=== PATIENT | female | born 1980 | race Hispanic/Latino ===

== ENCOUNTER → 2025-06-20 | Day surgery (SDC) | payer OTHER ==
[~2025-06-20] MED LIST: FENTANYL CITRATE/PF 100MCG/2 ML INJ ONE; GLUCAGON FOR INJ 1 MG VIAL ONE; LIDOCAINE HCL 2% LOCAL INJ 5 ML SDV VIAL INJ ONE; METOCLOPRAMIDE HCL 10 MG/2ML VIAL ONE; MULTI-VITAMIN1 EACH PO; OMEGA 3 1,0001 EACH PO; PROPOFOL IV EMULSION 50 ML IV ONE; VIT D PO; VIT D3-VIT K21 EACH PO; VIT E PO; ZESTRIL2.5 MG PO
[2025-06-20] MEDS: LACTATED RINGER'S 1,000 ML ONE (09:20)
[2025-06-20 14:15] VITALS: BP 121/67; PULSE 79; RESP 17; O2SAT 98
== END | disposition home or self-care (01) ==
LOC: OR 08:48
PROVIDERS: ATTEND Internal Medicine Gastroenterology
DX: Z12.11 Encounter for screening for malignant neoplasm of colon (principal); K64.8 Other hemorrhoids; K21.00 Gastro-esophageal reflux disease with esophagitis, without bleeding; K29.50 Unspecified chronic gastritis without bleeding; K44.9 Diaphragmatic hernia without obstruction or gangrene; K31.7 Polyp of stomach and duodenum; K31.89 Other diseases of stomach and duodenum; K59.09 Other constipation; I10 Essential (primary) hypertension; Z71.3 Dietary counseling and surveillance; Z68.25 Body mass index [BMI] 25.0-25.9, adult; Z79.899 Other long term (current) drug therapy
CPT/HCPCS: 43239; 43251; 45378; 81025; 93005; J1610; J2003; J2470; J2704; J2765; J3010; J7121

== ENCOUNTER → 2025-08-08 | Outpatient (REF) | payer OTHER ==
[~2025-08-08] MED LIST changes: -FENTANYL CITRATE/PF 100MCG/2 ML INJ ONE; -GLUCAGON FOR INJ 1 MG VIAL ONE; -LIDOCAINE HCL 2% LOCAL INJ 5 ML SDV VIAL INJ ONE; -METOCLOPRAMIDE HCL 10 MG/2ML VIAL ONE; -PROPOFOL IV EMULSION 50 ML IV ONE
== END ==
LOC: DX 09:32
PROVIDERS: ATTEND Surgery
DX: K21.9 Gastro-esophageal reflux disease without esophagitis (principal); K44.9 Diaphragmatic hernia without obstruction or gangrene
CPT/HCPCS: 74246

== ENCOUNTER 2025-09-05 06:24 | Inpatient (IN) | payer OTHER ==
[2025-09-04 11:22] LABS: BASOPHILS % 0.6 % (0.0-1.0); EOSINOPHILS % 1.8 % (0.0-6.0); LYMPHOCYTES % 21.8 % (18.0-39.1); MONOCYTES % 8.3 % (4.4-11.3); NEUTROPHILS % 67.1 % (38.7-80.0); RED CELL DISTRIBUTION WIDTH 13.1 % (11.7-14.4)
[2025-09-04 12:02] LABS: EST GLOMERULAR FILTRATION RATE 110.0 ML/MIN (>=60)
[~2025-09-05] VITALS: Ht 160 cm; Wt 78.5 kg
[2025-09-05] MEDS ORDERED: DEXAMETHASONE SOD PHOS INJ 4 MG/ML SDV ONE (07:51)
[2025-09-05] MEDS ORDERED: ACETAMINOPHEN 1000 MG/100 ML 100 ML IV ONE (07:51)
[2025-09-05] MEDS ORDERED: ONDANSETRON HCL INJ 2MG/ML 2ML 2 MG/ML VIAL ONE (07:51)
[2025-09-05] MEDS ORDERED: FENTANYL CITRATE/PF 100MCG/2 ML INJ ONE (07:51)
[2025-09-05] MEDS ORDERED: PROPOFOL IV EMULSION 10 MG/ML 20 ML VIAL ONE ×2 (07:51)
[2025-09-05] MEDS ORDERED: LIDOCAINE HCL 2% LOCAL INJ 5 ML SDV VIAL INJ ONE (07:51)
[2025-09-05] MEDS ORDERED: MIDAZOLAM HCL 2 MG/2 ML VIAL ONE (07:51)
[2025-09-05] MEDS ORDERED: ROCURONIUM BROMIDE 1 ML IV ONE ×2 (07:52→10:33)
[2025-09-05] MEDS ORDERED: HYDROMORPHONE 2MG/ML ONE (09:19)
[2025-09-05] MEDS ORDERED: EPHEDRINE SULFATE INJ 50 MG/ML VIAL ONE (09:31)
[2025-09-05] MEDS: LACTATED RINGER'S 1,000 ML ONE (10:58)
[2025-09-05] MEDS ORDERED: SUGAMMADEX SODIUM 200 MG/2 ML VIAL IV ONE ×2 (11:15→11:40)
[2025-09-05] MEDS: SODIUM CHLORIDE 0.9% 250ML IRRIG IR SCH (12:30)
[2025-09-05 14:44] VITALS: BP 139/89; PULSE 87; RESP 18; TEMP 97.3; O2SAT 100
[2025-09-05] MEDS: SODIUM CHLORIDE 0.9% 1000ML 1,000 ML IV SCH (16:01)
[2025-09-05 16:16] VITALS: BP 124/88; PULSE 91; RESP 19; TEMP 98.9; O2SAT 100
[2025-09-05] MEDS: SODIUM CHLORIDE 0.9% IRRIG 1,000 ML BTL IR SCH (17:17)
[2025-09-05 20:00] VITALS: BP 121/89; PULSE 102; RESP 18; TEMP 99.3; O2SAT 100
[2025-09-05] MEDS: ONDANSETRON HCL INJ 2MG/ML 2ML 2 MG/ML VIAL IV PRN (22:07)
[2025-09-05] MEDS: HYDROMORPHONE 1MG/1ML INJ IV PRN (22:07)
[2025-09-05] MEDS ORDERED: SEVOFLURANE INHAL SOLN 250 ML PEN BTL ONE (23:07)
[2025-09-06] VITALS (7 sets, daily range): BP systolic 117–128; BP diastolic 80–91; PULSE 102–120; RESP 18–19; TEMP 97.9–100; O2SAT 95–100
[2025-09-06] MEDS: ACETAMINOPHEN 1000 MG/100 ML IV PRN (03:04)
[2025-09-06 05:25] LABS: BASOPHILS % 0.2 % (0.0-1.0); EOSINOPHILS % 0.0 % (0.0-6.0); LYMPHOCYTES % 3.6 % (18.0-39.1); MONOCYTES % 7.4 % (4.4-11.3); NEUTROPHILS % 88.4 % (38.7-80.0); RED CELL DISTRIBUTION WIDTH 13.0 % (11.7-14.4)
[2025-09-06 05:57] LABS: EST GLOMERULAR FILTRATION RATE 118.0 ML/MIN (>=60)
[2025-09-07] VITALS (9 sets, daily range): BP systolic 99–150; BP diastolic 66–107; PULSE 117–142; RESP 18–21; TEMP 97.6–99.3; O2SAT 92–97
[2025-09-07 15:29] LABS: BASOPHILS % 0.2 % (0.0-1.0); EOSINOPHILS % 0.0 % (0.0-6.0); LYMPHOCYTES % 2.5 % (18.0-39.1); MONOCYTES % 5.4 % (4.4-11.3); NEUTROPHILS % 91.2 % (38.7-80.0); RED CELL DISTRIBUTION WIDTH 13.4 % (11.7-14.4)
[2025-09-07] MEDS: ACETAMINOPHEN 1000 MG/100 ML IV PRN (17:48)
[2025-09-07] MEDS: HYDROMORPHONE 1MG/1ML INJ IV STA (22:07)
[2025-09-07] MEDS ORDERED: SODIUM CHLORIDE 0.9% 100 ML ONE (22:27)
[2025-09-07] MEDS ORDERED: IOPAMIDOL 370 MG/ML 100 ML INFUS..BTL INJ ONE (22:27)
[2025-09-07 23:28] LABS: BASOPHILS % 0.2 % (0.0-1.0); EOSINOPHILS % 0.0 % (0.0-6.0); LYMPHOCYTES % 10.2 % (18.0-39.1); MONOCYTES % 6.3 % (4.4-11.3); NEUTROPHILS % 82.7 % (38.7-80.0); RED CELL DISTRIBUTION WIDTH 13.4 % (11.7-14.4)
[2025-09-07 23:49] LABS: EST GLOMERULAR FILTRATION RATE 112.0 ML/MIN (>=60)
[2025-09-08] VITALS (26 sets, daily range): BP systolic 90–131; BP diastolic 56–102; PULSE 102–119; RESP 14–20; TEMP 96.9–99.7; O2SAT 100
[2025-09-08] MEDS ORDERED: MIDAZOLAM HCL 2 MG/2 ML VIAL ONE (00:03)
[2025-09-08] MEDS ORDERED: FENTANYL CITRATE/PF 100MCG/2 ML INJ ONE ×2 (00:03→02:18)
[2025-09-08] MEDS ORDERED: LIDOCAINE HCL 2% LOCAL INJ 5 ML SDV VIAL INJ ONE (00:03)
[2025-09-08] MEDS ORDERED: ROCURONIUM BROMIDE 1 ML IV ONE ×2 (00:03→02:46)
[2025-09-08] MEDS ORDERED: PROPOFOL IV EMULSION 10 MG/ML 20 ML VIAL ONE (00:04)
[2025-09-08] MEDS ORDERED: SODIUM CHLORIDE 0.9% 100 ML ONE (02:13)
[2025-09-08] MEDS ORDERED: ACETAMINOPHEN 1000 MG/100 ML 100 ML IV ONE (02:13)
[2025-09-08] MEDS ORDERED: PHENYLEPHRINE HCL 1% 10 MG/ML VIAL ONE (02:13)
[2025-09-08] MEDS ORDERED: HYDROMORPHONE 2MG/ML ONE (02:53)
[2025-09-08] MEDS ORDERED: ACETAMINOPHEN 1000 MG/100 ML IV PRN (04:00)
[2025-09-08] MEDS: FENTANYL 2000MCG/NS 250 250 ML IV PRN (04:30)
[2025-09-08] MEDS: SODIUM CHLORIDE 0.9% 250ML 250 ML IV ONE (04:37)
[2025-09-08] MEDS: SODIUM CHLORIDE 0.9% 250ML IRRIG IR SCH (04:38)
[2025-09-08] MEDS: BUPIVACAINE LIPOSOME/PF 266 MG/20 ML IJ ONE (04:38)
[2025-09-08] MEDS: LACTATED RINGER'S 1,000 ML ONE (04:39)
[2025-09-08] MEDS: MEROPENEM 1 GM in SODIUM CHLORIDE 0.9% 100 ML IV SCH (04:40)
[2025-09-08 04:45] LABS: ABG PCO2 35 mmHg (35-45); ABG PH 7.38 (7.35-7.45); ABG PO2 138 mmHg (80-105)
[2025-09-08 04:46] LABS: ABG BASE EXCESS -4.0 mmol/L (-2 - 3); ABG HCO3 21 mmol/L (22-26); ABG OXYGEN SATURATION 138.0 % (95-98); ABG TCO2 22
[2025-09-08] MEDS: DEXTROSE 5%/LACTATED RINGERS 1,000 ML IV SCH (06:18)
[2025-09-08 06:34] LABS: BASOPHILS % 0.2 % (0.0-1.0); EOSINOPHILS % 0.0 % (0.0-6.0); LYMPHOCYTES % 7.8 % (18.0-39.1); MONOCYTES % 6.2 % (4.4-11.3); NEUTROPHILS % 85.4 % (38.7-80.0); RED CELL DISTRIBUTION WIDTH 13.2 % (11.7-14.4)
[2025-09-08 06:50] LABS: EST GLOMERULAR FILTRATION RATE 120.0 ML/MIN (>=60)
[2025-09-08] MEDS: MUPIROCIN 2% OINT 22 GM TUBE TOP SCH (08:57)
[2025-09-08] MEDS: PROPOFOL IV EMULSION 10MG/ML 100 ML IV PRN (08:58)
[2025-09-08 10:07] LABS: ABG BASE EXCESS -3.0 mmol/L (-2 - 3); ABG HCO3 22 mmol/L (22-26); ABG OXYGEN SATURATION 99.0 % (95-98); ABG PCO2 36 mmHg (35-45); ABG PH 7.39 (7.35-7.45); ABG PO2 124 mmHg (80-105); ABG TCO2 23
[2025-09-08 12:02] LABS: BAND NEUTROPHILS % (MANUAL) 36 %; LYMPHOCYTES % (MANUAL) 4 % (19-48); METAMYELOCYTES % (MANUAL) 3 % (0-0); MONOCYTES % (MANUAL) 7 % (3.4-9.0); NEUTROPHILS % (MANUAL) 49 % (40-74); PLATELET ESTIMATE ADEQUATE; PLATELET MORPHOLOGY COMMENT NORMAL; PROMYELOCYTES % (MANUAL) 1 % (0-0); RBC MORPHOLOGY COMMENT NORMAL
[2025-09-09] VITALS (27 sets, daily range): BP systolic 89–144; BP diastolic 55–120; PULSE 90–114; RESP 11–16; TEMP 97.9–99.4; O2SAT 100
[2025-09-09 06:21] LABS: BASOPHILS % 0.1 % (0.0-1.0); EOSINOPHILS % 0.6 % (0.0-6.0); LYMPHOCYTES % 5.8 % (18.0-39.1); MONOCYTES % 6.2 % (4.4-11.3); NEUTROPHILS % 86.3 % (38.7-80.0); RED CELL DISTRIBUTION WIDTH 13.4 % (11.7-14.4)
[2025-09-09 06:45] LABS: EST GLOMERULAR FILTRATION RATE 117.0 ML/MIN (>=60)
[2025-09-09] MEDS: POTASSIUM CHLORIDE 20MEQ/100ML 200 ML IV ONE ×2 (08:07→17:01)
[2025-09-09 15:36] LABS: ABG BASE EXCESS 4.0 mmol/L (-2 - 3); ABG HCO3 28 mmol/L (22-26); ABG OXYGEN SATURATION 98.0 % (95-98); ABG PCO2 42 mmHg (35-45); ABG PH 7.43 (7.35-7.45); ABG PO2 106 mmHg (80-105); ABG TCO2 29
[2025-09-09 15:38] LABS: ABG HCO3 28 mmol/L (22-26); ABG PCO2 40 mmHg (35-45); ABG PH 7.45 (7.35-7.45); ABG PO2 174 mmHg (80-105); ABG TCO2 29
[2025-09-09 15:39] LABS: ABG BASE EXCESS 4.0 mmol/L (-2 - 3); ABG OXYGEN SATURATION 100.0 % (95-98)
[2025-09-10] VITALS (24 sets, daily range): BP systolic 109–143; BP diastolic 73–105; PULSE 85–117; RESP 12–24; TEMP 98.1; O2SAT 98–100
[2025-09-10] MEDS: HYDROMORPHONE 1MG/1ML INJ IV PRN (01:05)
[2025-09-10 06:54] LABS: BASOPHILS % 0.3 % (0.0-1.0); EOSINOPHILS % 2.2 % (0.0-6.0); LYMPHOCYTES % 7.9 % (18.0-39.1); MONOCYTES % 5.2 % (4.4-11.3); NEUTROPHILS % 80.5 % (38.7-80.0); RED CELL DISTRIBUTION WIDTH 13.6 % (11.7-14.4)
[2025-09-10 07:34] LABS: EST GLOMERULAR FILTRATION RATE 120.0 ML/MIN (>=60)
[2025-09-10 10:50] LABS: ABG BASE EXCESS 7.0 mmol/L (-2 - 3); ABG HCO3 28 mmol/L (22-26); ABG OXYGEN SATURATION 99.0 % (95-98); ABG PCO2 29 mmHg (35-45); ABG PH 7.61 (7.35-7.45); ABG PO2 94 mmHg (80-105); ABG TCO2 29
[2025-09-10] MEDS: POTASSIUM CHLORIDE 20MEQ/100ML 100 ML IV ONE ×2 (17:20→22:07)
[2025-09-10] MEDS: FUROSEMIDE INJ 10 MG/ML 2 ML VIAL IV ONE (20:29)
[2025-09-10] MEDS: LORAZEPAM INJ 2 MG/ML VIAL IV ONE (22:05)
[2025-09-11] VITALS (14 sets, daily range): BP systolic 104–136; BP diastolic 78–98; PULSE 89–113; RESP 16–25; TEMP 97.7–99.7; O2SAT 97–100
[2025-09-11 06:37] LABS: BASOPHILS % 0.3 % (0.0-1.0); EOSINOPHILS % 1.8 % (0.0-6.0); LYMPHOCYTES % 8.4 % (18.0-39.1); MONOCYTES % 6.0 % (4.4-11.3); NEUTROPHILS % 75.4 % (38.7-80.0); RED CELL DISTRIBUTION WIDTH 13.5 % (11.7-14.4)
[2025-09-11 06:55] LABS: EST GLOMERULAR FILTRATION RATE 121.0 ML/MIN (>=60)
[2025-09-11] MEDS ORDERED: BISACODYL 10 MG SUPP PR ONE (08:00)
[2025-09-11 08:40] LABS: BAND NEUTROPHILS % (MANUAL) 2 %; LYMPHOCYTES % (MANUAL) 8 % (19-48); METAMYELOCYTES % (MANUAL) 1 % (0-0); MONOCYTES % (MANUAL) 6 % (3.4-9.0); MYELOCYTES % (MANUAL) 3 % (0-0); NEUTROPHILS % (MANUAL) 80 % (40-74)
[2025-09-11 08:43] LABS: PLATELET ESTIMATE ADEQUATE
[2025-09-11 08:44] LABS: PLATELET MORPHOLOGY COMMENT NORMAL; RBC MORPHOLOGY COMMENT NORMAL
[2025-09-11] MEDS: BISACODYL 10 MG SUPP PR ONE (10:40)
[2025-09-11] MEDS: FUROSEMIDE INJ 10 MG/ML 2 ML VIAL IV ONE (14:33)
[2025-09-11] MEDS: POTASSIUM CHLORIDE 20MEQ/100ML 100 ML IV ONE ×2 (15:50→17:08)
[2025-09-12] VITALS (28 sets, daily range): BP systolic 116–138; BP diastolic 80–97; PULSE 74–100; RESP 17–25; TEMP 99.4–100.2; O2SAT 98–100
[2025-09-12 06:49] LABS: BASOPHILS % 0.7 % (0.0-1.0); EOSINOPHILS % 2.6 % (0.0-6.0); LYMPHOCYTES % 8.9 % (18.0-39.1); MONOCYTES % 8.9 % (4.4-11.3); NEUTROPHILS % 65.7 % (38.7-80.0); RED CELL DISTRIBUTION WIDTH 13.4 % (11.7-14.4)
[2025-09-12 08:47] LABS: EST GLOMERULAR FILTRATION RATE 119.0 ML/MIN (>=60)
[2025-09-12 09:53] LABS: LYMPHOCYTES % (MANUAL) 8 % (19-48); MONOCYTES % (MANUAL) 6 % (3.4-9.0); MYELOCYTES % (MANUAL) 2 % (0-0); NEUTROPHILS % (MANUAL) 81 % (40-74); PLATELET ESTIMATE ADEQUATE; PLATELET MORPHOLOGY COMMENT NORMAL; RBC MORPHOLOGY COMMENT NORMAL; REACTIVE LYMPHOCYTES 3
[2025-09-12] MEDS: POTASSIUM CHLORIDE 20MEQ/100ML 100 ML IV SCH (10:10)
[2025-09-12] MEDS: BISACODYL 10 MG SUPP PR ONE (20:20)
[2025-09-13] VITALS (8 sets, daily range): BP systolic 85–151; BP diastolic 74–94; PULSE 83–99; RESP 17–23; TEMP 98.5–99.6; O2SAT 97–100
[2025-09-13 06:30] LABS: BASOPHILS % 0.6 % (0.0-1.0); EOSINOPHILS % 2.5 % (0.0-6.0); LYMPHOCYTES % 8.6 % (18.0-39.1); MONOCYTES % 9.2 % (4.4-11.3); NEUTROPHILS % 65.8 % (38.7-80.0); RED CELL DISTRIBUTION WIDTH 13.4 % (11.7-14.4)
[2025-09-13 07:23] LABS: EST GLOMERULAR FILTRATION RATE 120.0 ML/MIN (>=60)
[2025-09-13] MEDS: BISACODYL 10 MG SUPP PR ONE (08:08)
[2025-09-13 10:57] LABS: BAND NEUTROPHILS % (MANUAL) 3 %; LYMPHOCYTES % (MANUAL) 6 % (19-48); MONOCYTES % (MANUAL) 11 % (3.4-9.0); MYELOCYTES % (MANUAL) 4 % (0-0); NEUTROPHILS % (MANUAL) 76 % (40-74); PLATELET ESTIMATE ADEQUATE; PLATELET MORPHOLOGY COMMENT NORMAL; RBC MORPHOLOGY COMMENT NORMAL
[2025-09-13 13:37] LABS: ABG BASE EXCESS -3.0 mmol/L (-2 - 3); ABG HCO3 22 mmol/L (22-26); ABG OXYGEN SATURATION 99.0 % (95-98); ABG PCO2 36 mmHg (35-45); ABG PH 7.39 (7.35-7.45); ABG PO2 124 mmHg (80-105); ABG TCO2 23
[2025-09-13 13:37] LABS: ABG BASE EXCESS 4.0 mmol/L (-2 - 3); ABG HCO3 28 mmol/L (22-26); ABG OXYGEN SATURATION 98.0 % (95-98); ABG PCO2 42 mmHg (35-45); ABG PH 7.43 (7.35-7.45); ABG PO2 106 mmHg (80-105); ABG TCO2 29
[2025-09-13 13:38] LABS: ABG BASE EXCESS 4.0 mmol/L (-2 - 3); ABG HCO3 28 mmol/L (22-26); ABG OXYGEN SATURATION 100.0 % (95-98); ABG PCO2 40 mmHg (35-45); ABG PH 7.45 (7.35-7.45); ABG PO2 174 mmHg (80-105); ABG TCO2 29
[2025-09-13 13:38] LABS: ABG BASE EXCESS 7.0 mmol/L (-2 - 3); ABG HCO3 28 mmol/L (22-26); ABG OXYGEN SATURATION 99.0 % (95-98); ABG PCO2 29 mmHg (35-45); ABG PH 7.61 (7.35-7.45); ABG PO2 94 mmHg (80-105); ABG TCO2 29
[2025-09-14] VITALS (7 sets, daily range): BP systolic 110–127; BP diastolic 70–96; PULSE 79–99; RESP 18–20; TEMP 97.9–100.4; O2SAT 98–100
[2025-09-14 11:39] LABS: ABG BASE EXCESS -4.0 mmol/L (-2 - 3); ABG HCO3 21 mmol/L (22-26); ABG OXYGEN SATURATION 99.0 % (95-98); ABG PCO2 35 mmHg (35-45); ABG PH 7.38 (7.35-7.45); ABG PO2 138 mmHg (80-105); ABG TCO2 22
[2025-09-14] MEDS ORDERED: HYDROCODONE/APAP 5MG-325MG TAB PO PRN (13:30)
[2025-09-14] MEDS: LORAZEPAM 0.5 MG TAB PO PRN (21:40)
[2025-09-14] MEDS: KETOROLAC TROMETHAMINE 30 MG/ML VIAL IV PRN (21:48)
[2025-09-15] VITALS: BP 123/78; PULSE 87; RESP 18; TEMP 98; O2SAT 100
[2025-09-15 09:19] VITALS: BP 119/88; PULSE 86; RESP 17; TEMP 98.1; O2SAT 100
[2025-09-15 17:35] VITALS: BP 127/85; PULSE 88; RESP 18; TEMP 98.3; O2SAT 100
[2025-09-15 17:56] VITALS: BP 119/73; PULSE 92; RESP 18; TEMP 98.4; O2SAT 100
[2025-09-15 20:00] VITALS: BP 116/79; PULSE 84; RESP 18; TEMP 99.2; O2SAT 100
[2025-09-15 20:45] VITALS: BP 116/79; PULSE 88; RESP 16; TEMP 99.2; O2SAT 100
[2025-09-16 00:34] VITALS: BP 119/78; PULSE 90; RESP 18; TEMP 99; O2SAT 100
[2025-09-16 04:40] VITALS: BP 114/78; PULSE 92; RESP 16; TEMP 99; O2SAT 100
[2025-09-16 09:00] VITALS: BP 113/80; PULSE 88; RESP 18; TEMP 97.9; O2SAT 100
[2025-09-16 16:52] VITALS: BP 115/80; PULSE 99; RESP 18; TEMP 98.2; O2SAT 98
[2025-09-16 17:48] VITALS: BP 120/79; PULSE 86; RESP 18; TEMP 98.2; O2SAT 100
== END 2025-09-16 20:00 | disposition home or self-care (01) | DRG 326 ==
LOC: OR 06:24 → PACU V 12:55 → MED/SURG 14:30 → ICU 09-08 03:46 → OBSVTOIN 09-08 08:44 → MED/SURG 09-13 11:30 → MED/SURG2 09-13 23:22
PROVIDERS: ADMIT Surgery; ATTEND Surgery
PROC: 0BQT4ZZ Repair Diaphragm, Percutaneous Endoscopic Approach (ICD-10-PCS; 2025-09-05)
PROC: 0DQ44ZZ Repair Esophagogastric Junction, Percutaneous Endoscopic Approach (ICD-10-PCS; 2025-09-05)
PROC: 0DQ70ZZ Repair Stomach, Pylorus, Open Approach (ICD-10-PCS; 2025-09-08)
PROC: 0W9B00Z Drainage of Left Pleural Cavity with Drainage Device, Open Approach (ICD-10-PCS; 2025-09-08)
PROC: 0DV40ZZ Restriction of Esophagogastric Junction, Open Approach (ICD-10-PCS; principal; 2025-09-08 00:32)
DX: K65.9 Peritonitis, unspecified (principal); J95.2 Acute pulmonary insufficiency following nonthoracic surgery; J98.11 Atelectasis; J90 Pleural effusion, not elsewhere classified; K91.71 Accidental puncture and laceration of a digestive system organ or structure during a digestive system procedure; J95.811 Postprocedural pneumothorax; T82.7XXA Infection and inflammatory reaction due to other cardiac and vascular devices, implants and grafts, initial encounter; T82.898A Other specified complication of vascular prosthetic devices, implants and grafts, initial encounter; K44.9 Diaphragmatic hernia without obstruction or gangrene; E87.6 Hypokalemia; D64.9 Anemia, unspecified; E87.70 Fluid overload, unspecified; K21.9 Gastro-esophageal reflux disease without esophagitis; Y73.3 Surgical instruments, materials and gastroenterology and urology devices (including sutures) associated with adverse incidents; Y92.234 Operating room of hospital as the place of occurrence of the external cause
CPT/HCPCS: 36415; 36600; 71045; 71046; 74174; 80048; 80053; 81025; 82805; 82948; 83690; 85025; 86850; 86900; 86920; 93005; 94002; 94003; 94799; 99252; C1766; G0378; J0666; J0696; J1100; J1171; J1885; J1938; J2003; J2060; J2185; J2250; J2371; J2405; J2470; J3480; J7030; J7050; Q9967